=== PATIENT | female | born 1945 | race Caucasian/White ===

== ENCOUNTER 2020-07-11 15:30 | Inpatient (IN) | payer MEDICARE ==
[~2020-07-11] VITALS: Ht 165.1 cm; Wt 70.8 kg
[2020-07-11] MEDS ORDERED: RISP2TAB23 PO (16:03)
[2020-07-11] MEDS ORDERED: METO-357 PO (16:03)
[2020-07-11] MEDS ORDERED: SODI650T PO (16:03)
[2020-07-11] MEDS ORDERED: ATOR80TA PO (16:03)
[2020-07-11] MEDS ORDERED: ASPI-605 PO (16:03)
[2020-07-11] MEDS ORDERED: IRBE300T19 PO (16:03)
--- NOTE | 2020-07-11 16:20 | NUR ---
SEEN AND EXAMINED BY .
[2020-07-11 16:55] LABS: BASOPHILS # (AUTO) 0.1 /CMM (0.0-0.2); BASOPHILS % (AUTO) 0.8 % (0.0-2.0); EOSINOPHILS % (AUTO) 1.2 % (0.0-6.0); HEMATOCRIT 39 % (39-51); HEMOGLOBIN 12.3 g/dL (13.5-17.5); LYMPHOCYTES # (AUTO) 1.6 /CMM (0.8-4.8); LYMPHOCYTES % (AUTO) 22.2 % (20.0-44.0); MEAN CORPUSCULAR HGB CONC 32 g/dl (31.0-36.0); MEAN CORPUSCULAR VOLUME 94 fL (80-96); MONOCYTES # (AUTO) 0.7 /CMM (0.1-1.30); MONOCYTES % (AUTO) 10.3 % (2.0-12.0); NEUTROPHILS # (AUTO) 4.6 /CMM (1.8-8.9); NEUTROPHILS % (AUTO) 65.5 % (43.0-81.0); PLATELET COUNT (AUTO) 267 /CMM (150-450); RED BLOOD CELL COUNT(AUTO) 4.12 MIL/uL (4.5-6.0); WHITE BLOOD COUNT (AUTO) 7.1 K/uL (4.3-11.0)
[2020-07-11 17:04] LABS: CALCIUM, SERUM 8.9 mg/dL (8.5-10.1); CARBON DIOXIDE 30 mmol/L (21-32); CHLORIDE 110 mmol/L (98-107); CREATININE 1.8 mg/dL (0.6-1.3); GLUCOSE 110 mg/dL (74-106); POTASSIUM 4.5 mmol/L (3.5-5.1); SODIUM SERUM 146 mmol/L (136-145); UREA NITROGEN, BLOOD 40 mg/dL (7-18)
[2020-07-11 17:09] LABS: ALANINE AMINOTRANSFERASE 20 U/L (12-78); ALBUMIN 3.2 g/dL (3.4-5.0); ALKALINE PHOSPHATASE 120 U/L (46-116); ASPARTATE AMINOTRANSFERASE 18 U/L (15-37); BILIRUBIN,DIRECT 0.2 mg/dL (0.0-0.2); BILIRUBIN,TOTAL 1.1 mg/dL (0.2-1.0); TOTAL PROTEIN, SERUM 7.3 g/dL (6.4-8.2)
[2020-07-11 17:10] LABS: ACETAMINOPHEN < 2 ug/ml (10-30); ALCOHOL, BLOOD < 3 mg/dL (0-0); SALICYLATE < 2.8 mg/dL (2.8-20.0)
[2020-07-11 18:08] LABS: APPEARANCE,URINE Slightly Cloudy (CLEAR); BILIRUBIN,URINE Negative (NEGATIVE); BLOOD, URINE Trace-intact Ery/uL (NEGATIVE); COLOR,URINE Yellow (YELLOW); KETONES,URINE Negative (NEGATIVE); LEUKOCYTE ESTERASE ,URINE Small (NEGATIVE); NITRITE, URINE Positive (NEGATIVE); PH,URINE 5.5 (5.0-8.0); PROTEIN,URINE Negative (NEGATIVE); UGLUCOSE Negative (NEGATIVE); UROBILINOGEN,URINE 0.2 EU/dL (0.2)
[2020-07-11 18:16] LABS: BACTERIA,URINE Many /HPF (None Seen)
[2020-07-11 18:17] LABS: SQUAMOUS EPITHELIAL CELL,UR Few /HPF (None Seen)
[2020-07-11] MEDS ORDERED: CEFTRIAXONE 1 G in IV D5W 50 ML IV ONE (18:30)
[2020-07-11] MEDS ORDERED: IV NS 0.9% 1,000 ML IV ONE (18:30)
[2020-07-11] MEDS ORDERED: CEFTRIAXONE 1GM BAG (ER ONLY) 50 ML IV ONE (18:57)
--- NOTE | 2020-07-11 19:01 | NUR ---
CALLED AERONAUTICAL INSPECTOR DAVID DIEGO 1 HOUR
--- NOTE | 2020-07-11 19:10 | NUR ---
BIBDAUGHTER FROM HOME. TO ER BED 13. AAOX2 NOT IN RESP DISTRESS. BROUGHT IN FOR PROGRESSIVELY WORSENING CONFUSION AND WANDERING AT NIGHT. PT WAS ALSO REPORTED THAT HE COULD BE AGGRESIVE. PT DENIES ANY THOUGHT S OF HURTING HERSELF NOR OTHERS. DURING ASSESSMENT, PT IS CALM, COOPERATIVE AND COMPLIANT. PT IS IN GOWN WITH DAUGHTER AT BEDSIDE. MD WAS AT THE BEDSIDE FOR EVAL. ORDERS RECEIVED NOTED AND CARRIED OUT.
--- NOTE | 2020-07-11 19:15 | NUR ---
PT PROVIDED WITH FOOD
--- NOTE | 2020-07-11 21:28 | NUR ---
[facility]-2
[2020-07-11 21:53] VITALS: BP 129/65
--- NOTE | 2020-07-11 22:03 | NUR ---
Transported to [facility] for continuity of care. Patient tolerated transport well. All needs met, all orders carried out.
--- NOTE | 2020-07-11 22:05 | NUR ---
GPS RN-NOTE:ADMISSION ADMITTED A 75-YR OLD, FEMALE, PT CAME FROM HOME. ADMITTED ON 5150 FOR GD. PER HOLD, PT WAS INCREASINGLY CONFUSED, WANDERS AWAY FROM THE HOME. PT WAS FOUND ON THE STREET, LOOKING FOR HER , TALKING TO A WATER BOTTLE, TALKING TO SELF, HEARING VOICES, VERBALLY ABUSIVE. UPON FACE TO FACE ASSESSMENT, PATIENT PRESENTS A/OX 2, ANXIOUS, IRRITABLE, ANGRY, CONFUSED AND DISORIENTED, AMBULATORY UNSTEADY WITH ASSIST. PT EVAL ORDERED. PT WAS ADVISED OF HER HOLD. PT'S RIGHTS HANDBOOK AND A GUIDE TO PRESCRIPTION MEDICATIONS GIVEN. IN NO APPARENT DISTRESS NOTED. BELONGINGS WERE INVENTORIED AND CHECKED FOR CONTRABAND. PT. IS UNDER THE PSYCHIATRIC CARE OF DR. LENCHO HENDRICKS OBTAINED, AND UNDER THE MEDICAL CARE OF MARY BURGER. SKIN BODY ASSESSMENT DONE. PT DENIES PAIN/DISCOMFORT AT THIS TIME. BED LOCKED AND PLACED IN LOWEST POSITION TO MAINTAIN SAFETY. FALL PRECAUTIONS IMPLEMENTED. WILL CONTINUE TO MONITOR Q15 MIN ROUNDS FOR SAFETY AND BEHAVIOR.
[2020-07-11] MEDS ORDERED: BLOOD SUGAR DIAGNOSTIC 1 EACH STRIP IN ONE (22:30)
[2020-07-11] MEDS ORDERED: ACETAMINOPHEN 325 MG TABLET PO PRN (22:30)
[2020-07-11] MEDS ORDERED: MAGNESIUM HYDROXIDE 30 ML UDC PO PRN (22:30)
[2020-07-11] MEDS ORDERED: MAG HYDROX/AL HYDROX/SIMETH 30 ML UDC PO PRN (22:30)
[2020-07-11] MEDS: ATORVASTATIN 40 MG TABLET PO SCH (23:28)
[2020-07-12] MEDS ORDERED: Z GUARD REMEDY 4 OZ OINT TP PRN (02:00)
[2020-07-12] MEDS: LORAZEPAM 0.5 MG TABLET PO PRN (03:14)
--- NOTE | 2020-07-12 03:14 | NUR ---
GPS-RN NOTE: ANXIETY PATIENT IS ANXIOUS AND RESTLESS. ADMINISTERED ATIVAN 0.5MG PO ORDERED. WILL CONTINUE TO MONITOR. FOR SAFETY.
[2020-07-12] MEDS: ASPIRIN EC 81 MG TABLET.DR PO SCH (06:19)
[2020-07-12 08:00] VITALS: BP 146/88
[2020-07-12 08:20] LABS: CREATININE 1.1 mg/dL (0.6-1.3)
[2020-07-12] MEDS: METOPROLOL SUCCINATE 50 MG TAB.SR.24H PO SCH (08:35)
[2020-07-12] MEDS: CEPHALEXIN MONOHYDRATE 500 MG CAPSULE PO SCH ×2 (08:35→16:39)
[2020-07-12] MEDS: SODIUM BICARBONATE 650 MG TABLET PO SCH ×3 (09:00→16:39)
--- NOTE | 2020-07-12 11:38 | NUR ---
WOUND CARE CONSULT: PT PRESENTS WITH BREASTFOLD RASH, PRESENT ON ADMISSION. RECOMMENDATIONS MADE FOR SKIN CARE AND PROTECTION. DISCUSSED WITH NURSING STAFF. WILL SEE PRN. MOREIRA IN AGREEMENT WITH PLAN OF CARE. Addendum: 07/12/20 at 1139 by AFUA VIEYRA WNDNU Amended: Links added.
--- NOTE | 2020-07-12 12:39 | NUR ---
SNF Contact: SW received a call from Karina ([phone]), craft coordinator from [facility], who stated that the pt was admitted to their facility.
--- NOTE | 2020-07-12 12:40 | NUR ---
Family Contact: Pts daughter, Sofy ([phone]), called the SW and stated that the pt was accepted to [facility] and the SW stated that she was notified of the placement. SW stated that she will keep her updated throughout the discharge planning process.
[2020-07-12 16:00] VITALS: BP 150/79
[2020-07-12] MEDS: risperiDONE 1 MG TABLET PO SCH (16:38)
[2020-07-12] MEDS: CLOTRIMAZOLE 1% 15 GM TUBE TP SCH (16:39)
[2020-07-12 19:58] VITALS: BP 148/90
[2020-07-12] MEDS: ATORVASTATIN 40 MG TABLET PO SCH (21:44)
[2020-07-13] MEDS: ASPIRIN EC 81 MG TABLET.DR PO SCH (06:09)
[2020-07-13 08:00] VITALS: BP 169/83
[2020-07-13] MEDS: CEPHALEXIN MONOHYDRATE 500 MG CAPSULE PO SCH ×2 (09:08→16:07)
[2020-07-13] MEDS: SODIUM BICARBONATE 650 MG TABLET PO SCH ×3 (09:08→16:07)
[2020-07-13] MEDS: risperiDONE 1 MG TABLET PO SCH ×2 (09:08→16:07)
[2020-07-13] MEDS: METOPROLOL SUCCINATE 50 MG TAB.SR.24H PO SCH (09:08)
[2020-07-13] MEDS: CLOTRIMAZOLE 1% 15 GM TUBE TP SCH ×2 (09:09→16:08)
--- NOTE | 2020-07-13 12:22 | NUR ---
Initial Discharge Plan: Pt currently resides in an apartment with her DPOA/daughter, Sofy ([phone]), located at [address] [place] [address]. Per pt, she would like to be discharged back to her home. Per BRIISofy ([phone]), the pt was accepted to [facility]. MAURI confirmed this with Karina ([phone]) the stroke program coordinator. MAURI will work with the pt and the MD regarding appropriate discharge planning. MAURI will form a safe and proper discharge plan.
--- NOTE | 2020-07-13 12:22 | NUR ---
DPOA/Family Contact: SW called the pts daughter, Sofy ([phone]), and asked the pt to fax over the pts DPOA paperwork.
[2020-07-13 16:00] VITALS: BP 135/62
[2020-07-13] MEDS: METFORMIN 500 MG TABLET PO SCH (16:07)
[2020-07-13] MEDS: ATORVASTATIN 40 MG TABLET PO SCH (21:53)
[2020-07-13 22:00] VITALS: BP 128/70
[2020-07-14] MEDS: ASPIRIN EC 81 MG TABLET.DR PO SCH (06:06)
--- NOTE | 2020-07-14 06:57 | NUR ---
RN NOTES: PT. RESTING IN HER ROOM , NO ACUTE CHANGES NOTED, ALL NEEDS ANTICIPATED, WILL CONTINUITY WITH CARE.
[2020-07-14 08:00] VITALS: BP 127/71
[2020-07-14] MEDS: METFORMIN 500 MG TABLET PO SCH ×2 (08:34→16:19)
[2020-07-14] MEDS: CEPHALEXIN MONOHYDRATE 500 MG CAPSULE PO SCH ×2 (08:34→16:19)
[2020-07-14] MEDS: METOPROLOL SUCCINATE 50 MG TAB.SR.24H PO SCH (08:34)
[2020-07-14] MEDS: SODIUM BICARBONATE 650 MG TABLET PO SCH ×3 (08:34→16:19)
[2020-07-14] MEDS: risperiDONE 1 MG TABLET PO SCH ×2 (08:34→16:19)
[2020-07-14] MEDS: CLOTRIMAZOLE 1% 15 GM TUBE TP SCH ×2 (08:35→16:20)
[2020-07-14 16:00] VITALS: BP 137/71
[2020-07-14 19:28] VITALS: BP 120/75
[2020-07-14] MEDS: ATORVASTATIN 40 MG TABLET PO SCH (22:28)
[2020-07-14] MEDS: TEMAZEPAM 7.5 MG CAPSULE PO PRN (22:29)
--- NOTE | 2020-07-14 23:45 | NUR ---
GPS RN NOTE: PT REQUESTED FOR SLEEP MEDICATION DUE TO INSOMNIA. RESTORIL 7.5MG 1 TAB GIVEN PO PRN AT 2329. PT IS CURRENTLY SLEEPING. RESPIRATION EVEN AND UNLABORED WITH EQUAL RISE AND FALL OF THE CHEST. WILL CONTINUE TO MONITOR.
[2020-07-15] MEDS: ASPIRIN EC 81 MG TABLET.DR PO SCH (05:56)
--- NOTE | 2020-07-15 06:05 | NUR ---
GPS RN CLOSING NOTE: PT AWAKE AND ALERT. ASPIRIN 81MG 1 TAB GIVEN PO ORDERED AT 0600. PT LAYING COMFORTABLY ON BED. RESPIRATION EVEN AND UNLABORED WITH EQUAL RISE AND FALL OF THE CHEST. NO S/S OF ANY DISTRESS. ALL PT NEEDS, CARE DONE. PT HAS NO NEEDS AT THIS TIME. WILL CONTINUE TO MONITOR Q 15MINS AND Q 1 HR FOR SAFETY, MOOD AND BEHAVIOR AND ENDORSE TO AM SHIFT.
[2020-07-15 08:00] VITALS: BP 107/61
[2020-07-15] MEDS: CEPHALEXIN MONOHYDRATE 500 MG CAPSULE PO SCH ×2 (08:13→16:49)
[2020-07-15] MEDS: risperiDONE 1 MG TABLET PO SCH ×3 (08:13→22:16)
[2020-07-15] MEDS: METOPROLOL SUCCINATE 50 MG TAB.SR.24H PO SCH (08:13)
[2020-07-15] MEDS: METFORMIN 500 MG TABLET PO SCH ×2 (08:13→16:49)
[2020-07-15] MEDS: SODIUM BICARBONATE 650 MG TABLET PO SCH ×3 (08:15→16:49)
[2020-07-15] MEDS: CLOTRIMAZOLE 1% 15 GM TUBE TP SCH ×2 (08:21→16:50)
--- NOTE | 2020-07-15 09:00 | NUR ---
RN NOTE- PT IRRITABLE ON APPROACH, RESPONDS W MONOSYLLABIC ANSWERS, FLAT AFFECT POOR EYE CONTACT DISORGANIZED THOUGHT PROCESSES. PO INTAKE GOOD MED COMPLIANT PASSIVE WITHDRAWN
[2020-07-15 16:00] VITALS: BP 125/71
[2020-07-15 20:16] VITALS: BP 115/63
[2020-07-15] MEDS: ATORVASTATIN 40 MG TABLET PO SCH (22:16)
[2020-07-16] MEDS: ASPIRIN EC 81 MG TABLET.DR PO SCH ×2 (06:21→09:41)
[2020-07-16 06:49] LABS: BASOPHILS % (AUTO) 0.8 % (0.0-2.0); HEMATOCRIT 38 % (33-45); HEMOGLOBIN 12.4 g/dL (11.5-14.8); LYMPHOCYTES # (AUTO) 1.4 /CMM (0.8-4.8); LYMPHOCYTES % (AUTO) 25.5 % (20.0-44.0); MEAN CORPUSCULAR HGB CONC 32 g/dl (31.0-36.0); MEAN CORPUSCULAR VOLUME 92 fL (82-100); MONOCYTES # (AUTO) 0.5 /CMM (0.1-1.30); MONOCYTES % (AUTO) 9.7 % (2.0-12.0); NEUTROPHILS # (AUTO) 3.6 /CMM (1.8-8.9); PLATELET COUNT (AUTO) 258 /CMM (150-450); RED BLOOD CELL COUNT(AUTO) 4.18 MIL/uL (4.0-5.2); WHITE BLOOD COUNT (AUTO) 5.6 K/uL (4.3-11.0)
--- NOTE | 2020-07-16 06:49 | NUR ---
RN NOTES: PT. RESTING IN HER ROOM , NO ACUTE CHANGES NOTED, ALL NEEDS ANTICIPATED, WILL CONTINUITY WITH CARE.
[2020-07-16 07:10] LABS: ALANINE AMINOTRANSFERASE 21 U/L (12-78); ALBUMIN 3.1 g/dL (3.4-5.0); ALKALINE PHOSPHATASE 105 U/L (46-116); ASPARTATE AMINOTRANSFERASE 23 U/L (15-37); BILIRUBIN,TOTAL 1.2 mg/dL (0.2-1.0); CALCIUM, SERUM 9.4 mg/dL (8.5-10.1); CARBON DIOXIDE 29 mmol/L (21-32); CHLORIDE 103 mmol/L (98-107); CREATININE 1.4 mg/dL (0.6-1.3); GLUCOSE 120 mg/dL (74-106); MAGNESIUM 1.8 mg/dL (1.8-2.4); PHOSPHORUS 3.6 mg/dL (2.5-4.9); POTASSIUM 4.3 mmol/L (3.5-5.1); SODIUM SERUM 140 mmol/L (136-145); TOTAL PROTEIN, SERUM 7.6 g/dL (6.4-8.2); UREA NITROGEN, BLOOD 28 mg/dL (7-18)
[2020-07-16 08:00] VITALS: BP 110/72
[2020-07-16] MEDS: METOPROLOL SUCCINATE 50 MG TAB.SR.24H PO SCH (09:00)
[2020-07-16] MEDS: METFORMIN 500 MG TABLET PO SCH ×2 (09:40→17:49)
[2020-07-16] MEDS: risperiDONE 1 MG TABLET PO SCH ×2 (09:40→21:31)
[2020-07-16] MEDS: CEPHALEXIN MONOHYDRATE 500 MG CAPSULE PO SCH ×2 (09:41→17:48)
[2020-07-16] MEDS: CLOTRIMAZOLE 1% 15 GM TUBE TP SCH ×2 (09:44→17:49)
[2020-07-16] MEDS: SODIUM BICARBONATE 650 MG TABLET PO SCH ×3 (09:44→17:49)
--- NOTE | 2020-07-16 10:00 | NUR ---
fundraising consultant light freq.and urine obtained for multiple tests per dr. russell's order.
[2020-07-16 12:24] LABS: CREATININE, URINE 83.9 MG/DL (30.0-125.0); URINE TOTAL PROTEIN 7.8 mg/dL (0-11.9)
[2020-07-16 13:13] LABS: APPEARANCE,URINE CLEAR (CLEAR); BILIRUBIN,URINE NEGATIVE (NEGATIVE); BLOOD, URINE NEGATIVE Ery/uL (NEGATIVE); COLOR,URINE YELLOW (YELLOW); KETONES,URINE NEGATIVE (NEGATIVE); LEUKOCYTE ESTERASE ,URINE NEGATIVE (NEGATIVE); NITRITE, URINE NEGATIVE (NEGATIVE); PROTEIN,URINE NEGATIVE (NEGATIVE); UGLUCOSE NEGATIVE (NEGATIVE); UROBILINOGEN,URINE 0.2 EU/dL (0.2)
[2020-07-16 15:06] LABS: EOSINOPHIL,URINE None Seen
[2020-07-16 16:00] VITALS: BP 118/65
--- NOTE | 2020-07-16 18:57 | NUR ---
BACK AND FORTH BETWEEN RM. AND DINING RM.YELLING OUT FROM TIME TO TIME.VERY CONFUSED.
[2020-07-16 20:00] VITALS: BP 105/51
[2020-07-16 21:28] VITALS: BP 113/60
[2020-07-16] MEDS: ATORVASTATIN 40 MG TABLET PO SCH (21:30)
[2020-07-17 08:00] VITALS: BP 139/84
[2020-07-17] MEDS: risperiDONE 1 MG TABLET PO SCH ×2 (09:12→22:55)
[2020-07-17] MEDS: METOPROLOL SUCCINATE 50 MG TAB.SR.24H PO SCH (09:12)
[2020-07-17] MEDS: METFORMIN 500 MG TABLET PO SCH ×2 (09:12→16:36)
[2020-07-17] MEDS: SODIUM BICARBONATE 650 MG TABLET PO SCH ×3 (09:27→16:37)
[2020-07-17] MEDS: CLOTRIMAZOLE 1% 15 GM TUBE TP SCH ×2 (09:27→16:38)
--- NOTE | 2020-07-17 10:11 | NUR ---
RN-CO: ATIVAN GIVEN FOR SEVERE ANXIETY.
[2020-07-17 16:00] VITALS: BP 128/82
[2020-07-17] MEDS: LORAZEPAM 0.5 MG TABLET PO PRN (16:59)
--- NOTE | 2020-07-17 17:11 | NUR ---
RN-CO: ATIVAN 0.5 MG PO GIVEN FOR AGITATION.
[2020-07-17 20:22] VITALS: BP 102/58
[2020-07-17] MEDS: TEMAZEPAM 7.5 MG CAPSULE PO PRN (22:50)
[2020-07-17] MEDS: ATORVASTATIN 40 MG TABLET PO SCH (22:55)
[2020-07-18] MEDS: ASPIRIN EC 81 MG TABLET.DR PO SCH (06:52)
[2020-07-18 07:57] VITALS: BP 142/75
[2020-07-18] MEDS: METFORMIN 500 MG TABLET PO SCH ×2 (08:37→17:25)
[2020-07-18] MEDS: risperiDONE 1 MG TABLET PO SCH ×2 (08:37→22:18)
[2020-07-18] MEDS: METOPROLOL SUCCINATE 50 MG TAB.SR.24H PO SCH (08:38)
[2020-07-18] MEDS: CLOTRIMAZOLE 1% 15 GM TUBE TP SCH ×2 (08:40→17:33)
[2020-07-18] MEDS: SODIUM BICARBONATE 650 MG TABLET PO SCH ×3 (08:40→17:33)
[2020-07-18] MEDS: DIVALPROEX SODIUM 125 MG CAP.SPRINK PO SCH ×3 (10:48→17:25)
[2020-07-18 16:00] VITALS: BP 110/61
[2020-07-18 20:18] VITALS: BP 99/57
[2020-07-18] MEDS: ATORVASTATIN 40 MG TABLET PO SCH (22:17)
[2020-07-18] MEDS: TEMAZEPAM 7.5 MG CAPSULE PO PRN (22:50)
[2020-07-19] MEDS: ASPIRIN EC 81 MG TABLET.DR PO SCH (06:08)
[2020-07-19 06:29] LABS: BASOPHILS # (AUTO) 0.1 /CMM (0.0-0.2); EOSINOPHILS % (AUTO) 1.6 % (0.0-6.0); HEMATOCRIT 38 % (33-45); HEMOGLOBIN 11.9 g/dL (11.5-14.8); LYMPHOCYTES # (AUTO) 1.8 /CMM (0.8-4.8); LYMPHOCYTES % (AUTO) 25.8 % (20.0-44.0); MEAN CORPUSCULAR HGB CONC 32 g/dl (31.0-36.0); MEAN CORPUSCULAR VOLUME 94 fL (82-100); MONOCYTES # (AUTO) 0.7 /CMM (0.1-1.30); MONOCYTES % (AUTO) 9.8 % (2.0-12.0); NEUTROPHILS # (AUTO) 4.2 /CMM (1.8-8.9); NEUTROPHILS % (AUTO) 61.8 % (43.0-81.0); PLATELET COUNT (AUTO) 244 /CMM (150-450); RED BLOOD CELL COUNT(AUTO) 4.03 MIL/uL (4.0-5.2); WHITE BLOOD COUNT (AUTO) 6.8 K/uL (4.3-11.0)
[2020-07-19 07:16] LABS: ALANINE AMINOTRANSFERASE 21 U/L (12-78); ALBUMIN 2.9 g/dL (3.4-5.0); ALKALINE PHOSPHATASE 95 U/L (46-116); ASPARTATE AMINOTRANSFERASE 29 U/L (15-37); CALCIUM, SERUM 9.2 mg/dL (8.5-10.1); CARBON DIOXIDE 29 mmol/L (21-32); CHLORIDE 104 mmol/L (98-107); CREATININE 1.6 mg/dL (0.6-1.3); GLUCOSE 96 mg/dL (74-106); MAGNESIUM 2.1 mg/dL (1.8-2.4); PHOSPHORUS 4.7 mg/dL (2.5-4.9); POTASSIUM 4.7 mmol/L (3.5-5.1); SODIUM SERUM 140 mmol/L (136-145); UREA NITROGEN, BLOOD 33 mg/dL (7-18)
[2020-07-19 08:00] VITALS: BP 123/59
[2020-07-19] MEDS: DIVALPROEX SODIUM 125 MG CAP.SPRINK PO SCH (08:18)
[2020-07-19] MEDS: risperiDONE 1 MG TABLET PO SCH (08:18)
[2020-07-19] MEDS: METFORMIN 500 MG TABLET PO SCH (08:18)
[2020-07-19] MEDS: METOPROLOL SUCCINATE 50 MG TAB.SR.24H PO SCH (08:19)
[2020-07-19] MEDS: SODIUM BICARBONATE 650 MG TABLET PO SCH ×2 (08:28→13:00)
[2020-07-19] MEDS: CLOTRIMAZOLE 1% 15 GM TUBE TP SCH (08:28)
[2020-07-19 12:03] LABS: ABG BASE EXCESS 1.6 mmol/L; ABG OXYGEN SATURATION 96.7 % (92.0-98.5); ABG PCO2 56.3 mmHg (35.0-45.0); ABG PH 7.326 (7.350-7.450); ABG PO2 98.3 mmHg (75.0-100.0); AaDO2 34.9 mmHg; MetHb 0.3 % (0.0-1.5); O2Hb 96.4 % (94.0-97.0); SITE, ABG Right Radial; VENT MODE, BG SIMPLE MASK
--- NOTE | 2020-07-19 13:15 | NUR ---
RN-CO: DR MUSA MADE AWARE OF THE DISCHARGE TO ICU 264 DUE TO RESPIRATORY DISTRESS PER DR STANLEY. DR MUSA ORDERED TO CONTINUE PSYCH MEDS AND DISCONTINUE HOLD, NOTED.
--- NOTE | 2020-07-19 13:26 | NUR ---
RN NOTE: REPORT CALLED TO OMAYRA ARAYA IN ICU
[2020-07-19 13:30] VITALS: BP 114/68
--- NOTE | 2020-07-19 13:30 | NUR ---
CASHIER RECEPTIONIST NOTE/TRANSFER TO ICU - RAPID RESPONSE CALLED AFTER PT C/O DIFFICULTY BREATHING AND NOTED TO HAVE AN SPO2 83-84% ON RA. PT PLACED ON 2L VIA MASK AND SP2 INCREASED 85-86% PT LETHARGIC AND DIFFICULT TO AROUSE USING STERNAL RUB. RAPID RESPONSE CALLED. VS: 114/68, 22, 66, 98.6, ACCUCHECK 104. RAPID RESPONSE TEAM ASSESSED PT. PT DETERMINED TO BE MEDICALLY STABLE AND WITH SPO2 INCREASING TO 94% ON 4 LITERS VIA MASK. ATTEMPTED TO REPLACE MASK WITH NC AND TITRATE O2 BETWEEN 2-4 LITERS. INOCENCIA NOTIFIED AND ORDER FOR CHEST XRAY AND ABG. WHEN ATTEMPTING TO TITRATE O2 FROM 4 LITERS PT SPO2 DROPPED INTO THE 80'S. ABG RESULTS REVIEWED BY INOCENCIA DNP AND PCO2 ELEVATED. ORDER TO TRANSFER TO ICU. PSYCHIATRIST D/C'D HOLD AND ALL PSYCHIATRIC MEDICATIONS. REPORT CALLED TO ICU MAGDALENA RN. PT TRANSFERRED TO ICU VIA GURNEY WITH O2 AT 4 LITERS VIA NC AND ON LUBRICATOR GRANULATOR
--- NOTE | 2020-07-19 13:34 | NUR ---
RN-CO: DAUGHTER ROSHAN TEE [phone] IS AWARE OF HER DISCHARGE TO ICU ROOM 264.
--- NOTE | 2020-07-19 13:37 | NUR ---
DPOA/Family Contact: MAURI called the pts daughter, Sofy ([phone]), and informed her that the pt is going to be discharged to ICU for respiratory distress. MAURI stated that she will inform the director of casework department of the discharge plan to [facility].
--- NOTE | 2020-07-19 13:42 | NUR ---
Discharge Note: Pt was discharged to [facility] ICU due to respiratory distress.
[2020-07-19] MEDS ORDERED: DIVALPROEX SODIUM 125 MG CAP.SPRINK PO SCH (17:00)
== END 2020-07-19 13:17 | disposition short-term general hospital (02) | DRG 885 ==
LOC: EDSEX 15:38 → ER 15:38 → GPS 21:30
PROVIDERS: ADMIT Psychiatry & Neurology Psychiatry; ATTEND Nurse Practitioner Acute Care
DX: F31.64 Bipolar disorder, current episode mixed, severe, with psychotic features (principal); N17.0 Acute kidney failure with tubular necrosis; N18.9 Chronic kidney disease, unspecified; E44.1 Mild protein-calorie malnutrition; N39.0 Urinary tract infection, site not specified; E87.0 Hyperosmolality and hypernatremia; F29 Unspecified psychosis not due to a substance or known physiological condition; F03.90 Unspecified dementia, unspecified severity, without behavioral disturbance, psychotic disturbance, mood disturbance, and anxiety; E78.5 Hyperlipidemia, unspecified; I25.10 Atherosclerotic heart disease of native coronary artery without angina pectoris; Z95.1 Presence of aortocoronary bypass graft; I12.9 Hypertensive chronic kidney disease with stage 1 through stage 4 chronic kidney disease, or unspecified chronic kidney disease; E11.22 Type 2 diabetes mellitus with diabetic chronic kidney disease; Z79.82 Long term (current) use of aspirin; Z79.899 Other long term (current) drug therapy; Z73.6 Limitation of activities due to disability; B96.20 Unspecified Escherichia coli [E. coli] as the cause of diseases classified elsewhere
CPT/HCPCS: 36415; 36600; 71045-TC; 80048-TC; 80053-TC; 80061-TC; 80076-TC; 80305; 81000-TC; 82565-TC; 82570-TC; 82962-TC; 83735-TC; 84100-TC; 84155-TC; 84300-TC; 84443-TC; 85025-TC; 87081-TC; 87086-TC; 87186-TC; 97116-TC; G0480; J0696; J7030; J7060

== ENCOUNTER 2020-07-19 14:17 | Inpatient (IN) | payer MEDICARE ==
[2020-07-19] VITALS (10 sets, daily range): BP systolic 80–123; BP diastolic 35–78
[~2020-07-19] VITALS: Ht 165.1 cm; Wt 73.9 kg
--- NOTE | 2020-07-19 14:00 | NUR ---
ICU/RN: RECEIVED PT FROM [facility]. PT ADMITTED FROM [facility] FOR AMS. PT NOTED TO BE INCREASINGLY LETHARGIC, CONFUSED R/T PSYCHE MEDICATIONS. PT TRANSFERRED VIA WHEELCHAIR, TRANSFERRED TO BED. VSS, PLACED ON 4LITERS NASAL CANULA, NO ACUTE DISTRESS NOTED, MAINTAINING 02 SAT >93%. SINUS ON TELE. PSYCHE HOLD D/C'D PIOR IN [facility]. PT ALERT, FOLLOWS COMMANDS, YET CONFUSED AND INAPPROPRIATE. WILL CONTINUE TO MONITOR AND ASSESS. BED ALARM ON, CALL LIGHT WITHIN REACH. WILL CONTINUE TO MONITOR AND CARE.
[~2020-07-19 14:17] MED LIST: ASPI-605 PO; ATOR80TA PO; IRBE300T19 PO; METO-357 PO; SODI650T PO
[2020-07-19] MEDS ORDERED: IV NS 0.9% 1,000 ML IV PRN (15:00)
[2020-07-19] MEDS ORDERED: Z GUARD REMEDY 2 OZ OINT TP PRN (15:00)
[2020-07-19] MEDS ORDERED: ZOLPIDEM TARTRATE 5 MG TABLET PO PRN (15:00)
[2020-07-19] MEDS ORDERED: ACETAMINOPHEN 325 MG TABLET PO PRN (15:00)
[2020-07-19] MEDS ORDERED: ONDANSETRON HCL/PF 4 MG/2 ML VIAL IVP PRN (15:00)
--- NOTE | 2020-07-19 15:00 | NUR ---
ICU/RN: BREAST FOLD REDNESS NOTED UPON ADMISSION. PT REFUSED PHOTOS. CHARTED SKIN ASSESSMENT IN FLOWSHEET.
[2020-07-19 16:02] LABS: ABG BASE EXCESS 0.9 mmol/L; ABG OXYGEN SATURATION 95.7 % (92.0-98.5); ABG PCO2 47.8 mmHg (35.0-45.0); ABG PH 7.367 (7.350-7.450); AaDO2 115.2 mmHg; COHb 0.2 % (0.5-1.5); MetHb 0.1 % (0.0-1.5); O2Hb 95.4 % (94.0-97.0); SITE, ABG Right Brachial; VENT MODE, BG Nasal Cannula
--- NOTE | 2020-07-19 16:15 | NUR ---
ICU/RN: PT PULLED OUT PIV. REFUSED NEW INSERTION. ONE REMAINING RIGHT AC 20G.
[2020-07-19] MEDS: IPRATROPIUM NEB FS 0.5 MG/2.5 ML AMPUL.NEB NEB SCH ×3 (16:40→23:27)
[2020-07-19] MEDS: ALBUTEROL HALF STRENGTH 1.25 MG/3 ML VIAL.NEB NEB SCH ×3 (16:41→23:27)
[2020-07-19] MEDS ORDERED: IV NS 0.9% 500 ML IV ONE (18:00)
--- NOTE | 2020-07-19 19:30 | NUR ---
RN OPENING NOTES Received client resting in bed. Client is asleep. VS WNL. client is on external tele, NSR, HR 70's. O2 sat 98% on NC, receiving 2L of O2. No indications of pain or distress at this time. Client sleeps comfortably. Comfort measures provided at this time. Safety mechanisms in place. Will continue to monitor.
[2020-07-19] MEDS: HEPARIN SODIUM, PORCINE 5000 UNITS/1 ML VIAL SQ SCH (21:00)
--- NOTE | 2020-07-19 21:11 | NUR ---
client refused her heparin medication. benefits and risks were explained.
[2020-07-20] VITALS (17 sets, daily range): BP systolic 108–133; BP diastolic 52–101
--- NOTE | 2020-07-20 03:10 | NUR ---
RN NOTES Client is awake and request bedpan to produce urine. The client refuses to have the bed linen change or to to get skin care at this time. Client would like to continue sleeping. Will offer it at a later time.
[2020-07-20] MEDS: IPRATROPIUM NEB FS 0.5 MG/2.5 ML AMPUL.NEB NEB SCH ×6 (04:14→22:29)
[2020-07-20] MEDS: ALBUTEROL HALF STRENGTH 1.25 MG/3 ML VIAL.NEB NEB SCH ×6 (04:14→22:30)
[2020-07-20 04:49] LABS: BASOPHILS # (AUTO) 0.1 /CMM (0.0-0.2); BASOPHILS % (AUTO) 1.2 % (0.0-2.0); EOSINOPHILS % (AUTO) 1.4 % (0.0-6.0); HEMATOCRIT 37 % (33-45); LYMPHOCYTES # (AUTO) 1.3 /CMM (0.8-4.8); LYMPHOCYTES % (AUTO) 21.8 % (20.0-44.0); MEAN CORPUSCULAR HGB CONC 32 g/dl (31.0-36.0); MEAN CORPUSCULAR VOLUME 93 fL (82-100); MONOCYTES # (AUTO) 0.6 /CMM (0.1-1.30); MONOCYTES % (AUTO) 9.5 % (2.0-12.0); NEUTROPHILS # (AUTO) 3.8 /CMM (1.8-8.9); NEUTROPHILS % (AUTO) 66.1 % (43.0-81.0); PLATELET COUNT (AUTO) 239 /CMM (150-450); RED BLOOD CELL COUNT(AUTO) 4.03 MIL/uL (4.0-5.2); WHITE BLOOD COUNT (AUTO) 5.8 K/uL (4.3-11.0)
[2020-07-20 05:08] LABS: CALCIUM, SERUM 8.9 mg/dL (8.5-10.1); CARBON DIOXIDE 30 mmol/L (21-32); CHLORIDE 106 mmol/L (98-107); CREATININE 1.4 mg/dL (0.6-1.3); GLUCOSE 98 mg/dL (74-106); PHOSPHORUS 4.1 mg/dL (2.5-4.9); POTASSIUM 4.4 mmol/L (3.5-5.1); SODIUM SERUM 143 mmol/L (136-145); UREA NITROGEN, BLOOD 33 mg/dL (7-18)
[2020-07-20 05:21] LABS: CHOLESTEROL 110 mg/dL (<200); HDL CHOLESTEROL 44 mg/dL (40-60); LDL 52 mg/dL (0-99); TRIGLYCERIDES 84 mg/dL (30-150)
--- NOTE | 2020-07-20 06:49 | NUR ---
RN CLOSING NOTES No change in condition during the shift. No s/s of distress. No s/s of pain, client denies pain. VS WNL. Client remains positive and cooperative, no suicidal ideation expressed during the shift. Behavior congruent with reality. Comfort measures provided. Safety mechanisms in place. Will endorse the incoming nurse.
--- NOTE | 2020-07-20 07:30 | NUR ---
WOUND CARE CONSULT: LIMITED ASSESSMENT DUE TO PT REFUSAL TO HAVE BREASTFOLD AREAS CHECKED. PT PREVIOUSLY REFUSED PHOTOS. PT WAS SEEN BY WOUND CARE NURSE (TELEPRINTER INSTALLER) IN [facility] AND NOTED TO HAVE BREASTFOLD RASH. PT IS INCONTINENT. RECOMMENDATIONS MADE FOR SKIN CARE AND PROTECTION. DISCUSSED WITH NURSING STAFF. WILL SEE PRJamee OMREIRA IN AGREEMENT WITH PLAN OF CARE.
--- NOTE | 2020-07-20 07:45 | NUR ---
ICU/RN: INITIAL NOTES,AM RECEIVED PT ALERT, AWAKE, CONFUSED. ON NASAL CANULA, 2LITERS TOLERATING WELL, NO ACUTE DISTRESS NOTED. SINUS ON TELE. PIV PATENT AND INTACT, NO S;S OF INFECTION OR INFILTRATION NOTED. POSSIBLE DOWNGRADE AT THIS TIME. VSS, NO DISTRESS NOTED. PT ON 2G NA DIET, MINIMAL ASSISTANCE NEEDED. ALL NEEDS WILL BE ATTENDED TO, BED IN LOW POSITION, SIDE RAILS UP, CALL LIGHT WITHIN REACH, WILL CONTINUE CARE. WOUND NURSE AFUA AT BEDSIDE. LIMITED ASSESSMENT. PT REFUSED.
[2020-07-20] MEDS: HEPARIN SODIUM, PORCINE 5000 UNITS/1 ML VIAL SQ SCH ×2 (09:13→21:36)
[2020-07-20] MEDS: CLOTRIMAZOLE 1% 15 GM TUBE TP SCH ×2 (09:15→17:26)
--- NOTE | 2020-07-20 11:45 | NUR ---
ICU/RN: REPORT ENDORSED TO JYOTSNA ARAYA IN 3W. PT TRANSFERRED TO [facility]2. ALL BELONGINGS TRANSFERRED WITH PT. PT TRANSFERRED VIA BED WITH ACLS GUIDELINES. VSS, NO ISSUES NOTED. PIV PATENT AND INTACT, BED ALARM SET. CALL LIGHT WITHIN REACH. WILL CONTINUE CARE
--- NOTE | 2020-07-20 12:00 | NUR ---
TELEVISION CAMERAMANCOMMUNICATIONS CONSULTANT FROM ICU NOTES RECEIVED PT ALERT, AWAKE, CONFUSED. ANXIOUS TO GO BACK TO [place] WHERE SHE LIVES. REALITY ORIENTATION GIVEN. ON NASAL CANULA AT 2LITERS TOLERATING WELL, NO ACUTE DISTRESS NOTED. SINUS ON TELE. PIV PATENT AND INTACT, NO S/S OF INFECTION OR INFILTRATION NOTED. NO DISTRESS NOTED. MINIMAL ASSISTANCE NEEDED. BED IN LOW POSITION, SIDE RAILS UP, CALL LIGHT WITHIN REACH, WILL CONTINUE TO MONITOR.
--- NOTE | 2020-07-20 12:30 | NUR ---
PT KEEPS PULLING OUT HER O2 CANNULA AND DESATURATES TO 89%ON ROOM AIR.PT DENIES SOB.EXPLAINED THE RISKS AND BENEFITS OF HAVING HER O2 CANNULA ON AND PT WILL REMOVE IT AGAIN AFTER A FEW MINS.
[2020-07-20] MEDS: HYDROCODONE/APAP 5/325MG TABLET PO PRN ×2 (13:29→21:37)
--- NOTE | 2020-07-20 14:58 | NUR ---
PT PULLED OUT HER LT AC HEPLOCK INSPITE OF EXPLAINING THE RISKS AND BENEFITS. INSERTED A NEW ONE TO THE RT AC 2X AND PT PULLED IT OUT FOR THE 4TH TIME.NOTIFIED TODD HELLER AND MADE AWARE. PT HAS NO IVF ORDER. Addendum: 07/20/20 at 1508 by JYOTSNA BELL RN NOTIFIED DR PARHAM ABOUT THE ABOVE NOTES.TODD HELLER IS NOT ASSIGNED TO THE PT TODAY.DR PARHAM ORDERED TO DC PT'S IV HEPLOCK AND IV MED
--- NOTE | 2020-07-20 18:20 | NUR ---
PT CONTINUES TO BE CONFUSED,RESTLESS AND AGITATED DROPPING ALL THE PILLOWS AND THE BEDPAN ON THE FLOOR.PT KEEPS CALLING FOR HER MOM AND DAD.REALITY ORIENTATION GIVEN FREQUENTLY BUT INEFFECTIVE,STAYED AT BEDSIDE TO CLOSELY MONITOR PT'S SAFETY.DR PARHAM ORDERED A 1:1 SITTER FOR THE PT. PT KEEPS REMOVING HER O2 CANNULA INSPITE OF EXPLAINING THE RISKS AND BENEFITS OF HAVING HER O2 AT 2L/MIN VIA NC ON.WILL CONTINUE TO MONITOR.
--- NOTE | 2020-07-20 20:00 | NUR ---
RN NOTES RECEIVED PT. AWAKE ON BED ,A/OX1, SITTER AT BEDSIDE, TELE MONITOR ON STANDBY, PT IS REFUSING THE MONITOR, NO IV ACCES-MD IS AWARE, PT'S BEEM PULLING OUT THE IV ACCESS, NOT IN DISTRESS, NO PAIN NOTES, SIDERAILSUPX2, CONTINUE TO MONITOR
[2020-07-21] MEDS: IPRATROPIUM NEB FS 0.5 MG/2.5 ML AMPUL.NEB NEB SCH ×6 (02:29→23:43)
[2020-07-21] MEDS: ALBUTEROL HALF STRENGTH 1.25 MG/3 ML VIAL.NEB NEB SCH ×6 (02:29→23:43)
[2020-07-21 06:24] LABS: BASOPHILS # (AUTO) 0.1 /CMM (0.0-0.2); BASOPHILS % (AUTO) 1.1 % (0.0-2.0); EOSINOPHILS % (AUTO) 1.8 % (0.0-6.0); HEMATOCRIT 36 % (33-45); HEMOGLOBIN 11.5 g/dL (11.5-14.8); LYMPHOCYTES # (AUTO) 1.8 /CMM (0.8-4.8); LYMPHOCYTES % (AUTO) 33.3 % (20.0-44.0); MEAN CORPUSCULAR HGB CONC 32 g/dl (31.0-36.0); MEAN CORPUSCULAR VOLUME 93 fL (82-100); MONOCYTES # (AUTO) 0.6 /CMM (0.1-1.30); MONOCYTES % (AUTO) 10.4 % (2.0-12.0); NEUTROPHILS % (AUTO) 53.4 % (43.0-81.0); PLATELET COUNT (AUTO) 222 /CMM (150-450); RED BLOOD CELL COUNT(AUTO) 3.86 MIL/uL (4.0-5.2); WHITE BLOOD COUNT (AUTO) 5.5 K/uL (4.3-11.0)
--- NOTE | 2020-07-21 06:38 | NUR ---
RN NOTES AWAKE, MORNING CARE RENDERED, NOT IN DISTRESS, NO PAIN NOTED, SITTER AT BEDSIDE, SIDERAILSUPX2, PT. NEEDS ATTENDED
[2020-07-21 07:01] LABS: CREATININE 1.3 mg/dL (0.6-1.3); POTASSIUM 4.1 mmol/L (3.5-5.1)
[2020-07-21 08:00] VITALS: BP 132/55
--- NOTE | 2020-07-21 08:00 | NUR ---
MEDIA COORDINATORCOUNT ROOM CLERK FROM ICU NOTES RECEIVED PT COMFORTABLY LYING IN BED .ALERT, AWAKE, CONFUSED. REALITY ORIENTATION GIVEN. ON NASAL CANULA AT 2LITERS TOLERATING WELL, NO ACUTE DISTRESS NOTED. TELE ON STANDBY BECAUSE THE PT PULLS OUT SEVERAL TIMES INSPITE OF EXPLAINING THE RISKS AND BENEFITS. WITH 1:1 SITTER AT THE BEDSIDE. AM CARE DONE. ATE 25% BREAKFAST. PIV PATENT AND INTACT, NO S/S OF INFECTION OR INFILTRATION NOTED. NO DISTRESS NOTED. MODERATE ASSISTANCE NEEDED. BED IN LOW POSITION, SIDE RAILS UP, CALL LIGHT WITHIN REACH, WILL CONTINUE TO MONITOR.
[2020-07-21] MEDS: HEPARIN SODIUM, PORCINE 5000 UNITS/1 ML VIAL SQ SCH ×2 (08:43→21:27)
[2020-07-21] MEDS: CLOTRIMAZOLE 1% 15 GM TUBE TP SCH ×2 (10:17→17:35)
[2020-07-21 16:00] VITALS: BP 124/74
--- NOTE | 2020-07-21 17:49 | NUR ---
PT CONTINUES TO REFUSE MEALS, SNACKS AND FLUIDS SAYING SHE IS NOT HUNGRY. PT IS CALM IN BED.GETS IRRITATED EASILY. GETS ANXIOUS,CUSSES AND GETS ANGRY WHEN ENCOURAGED TO EAT MEALS OR DRINK FLUIDS EXPLAINING THE RISKS AND BENEFITS. REFUSED ALTERNATIVE SNACKS OR MEALS ACCORDING TO PT'S FOOD PREFERENCE BUT STILL REFUSES. WITH 1:1 SITTER AT THE BEDSIDE.
--- NOTE | 2020-07-21 17:56 | NUR ---
ATE 25% OF EACH MEAL AND REFUSED SNACKS AND EXTRA FLUIDS/JUICES.
[2020-07-21 18:29] VITALS: BP 124/74
[2020-07-21 20:00] VITALS: BP 149/79
--- NOTE | 2020-07-22 | NUR ---
GUM ROLLING MACHINE TENDER NOTES PT REFUSING TO HAVE VS TAKEN. EXPLAINED TO PT IMPORTANCE OF VS IN HER POC BUT PT STILL REFUSED. WILL CONTINUE TO MONITOR.
[2020-07-22] MEDS: IPRATROPIUM NEB FS 0.5 MG/2.5 ML AMPUL.NEB NEB SCH ×4 (03:25→15:26)
[2020-07-22] MEDS: ALBUTEROL HALF STRENGTH 1.25 MG/3 ML VIAL.NEB NEB SCH ×4 (03:25→15:26)
--- NOTE | 2020-07-22 06:39 | NUR ---
FISHER POT NOTES AWAKE & RESPONSIVE. NOT IN ANY DISTRESS. NO SOB NOTED. DENIES ANY PAIN OR DISCOMFORT AT THIS TIME. PT STILL REFUSING TELE MONITOR ON. AM CARE DONE. MONITORED ACCORDINGLY WITH SITTER AT BEDSIDE. CALL LIGHT WITHIN REACH. BED IN LOWEST POSITION. SR UP X 3 WITH BED ALARM ON FOR SAFETY. WILL ENDORSE TO NEXT SHIFT.
[2020-07-22 06:44] LABS: BASOPHILS % (AUTO) 0.7 % (0.0-2.0); EOSINOPHILS % (AUTO) 1.3 % (0.0-6.0); HEMATOCRIT 37 % (33-45); HEMOGLOBIN 11.9 g/dL (11.5-14.8); LYMPHOCYTES # (AUTO) 1.8 /CMM (0.8-4.8); LYMPHOCYTES % (AUTO) 26.9 % (20.0-44.0); MEAN CORPUSCULAR HGB CONC 32 g/dl (31.0-36.0); MEAN CORPUSCULAR VOLUME 93 fL (82-100); MONOCYTES # (AUTO) 0.6 /CMM (0.1-1.30); NEUTROPHILS # (AUTO) 4.1 /CMM (1.8-8.9); NEUTROPHILS % (AUTO) 62.1 % (43.0-81.0); PLATELET COUNT (AUTO) 231 /CMM (150-450); RED BLOOD CELL COUNT(AUTO) 3.99 MIL/uL (4.0-5.2); WHITE BLOOD COUNT (AUTO) 6.6 K/uL (4.3-11.0)
[2020-07-22 07:07] LABS: CALCIUM, SERUM 9.1 mg/dL (8.5-10.1); CREATININE 1.1 mg/dL (0.6-1.3); POTASSIUM 4.2 mmol/L (3.5-5.1)
--- NOTE | 2020-07-22 07:30 | NUR ---
NOTIFIED DR RUIZ AND DR PARHAM THAT THE PT HAS BEEN REFUSING TELE MONITOR FOR 3 DAYS WITH ORDER TO DC TELE.
[2020-07-22 08:00] VITALS: BP 132/75
--- NOTE | 2020-07-22 08:00 | NUR ---
SPEECH LANGUAGE PATHOLOGY ASSISTANT NOTES PT ALERT, AWAKE & RESPONSIVE. ANXIOUS TO TALK TO HER DAUGHTER,ROSHAN. CALLED ROSHAN AND SPOKE TO THE PT. NO SOB NOTED. DENIES ANY PAIN OR DISCOMFORT AT THIS TIME. PT STILL REFUSING TELE MONITOR ON. AM CARE DONE. MONITORED ACCORDINGLY WITH SITTER AT BEDSIDE. PT REFUSED TO EAT BREAKFAST, INSPITE OF EXPLAINING THE RISKS AND BENEFITS. OFFERED SNACK. PT STATED THAT HER THROAT HURTS. NOTIFIED DR PARHAM AND MADE AWARE. OFFERED HOT TEA TO SOOTHE PT'S THROAT WHICH SHE AGREED TO DRINK. WILL MONITOR. CALL LIGHT WITHIN REACH. BED IN LOWEST POSITION. SR UP X 3 WITH BED ALARM ON FOR SAFETY.
[2020-07-22] MEDS: HALOPERIDOL 1 MG TABLET PO PRN ×2 (08:55→16:27)
[2020-07-22] MEDS: HEPARIN SODIUM, PORCINE 5000 UNITS/1 ML VIAL SQ SCH (08:55)
[2020-07-22] MEDS: CLOTRIMAZOLE 1% 15 GM TUBE TP SCH ×2 (08:56→17:25)
--- NOTE | 2020-07-22 15:30 | NUR ---
CHECKED PT'S BELONGINGS AND THE PAIR OF SHOES WAS MISSING.CHECKED ON GPS AND ICU BUT TO NO AVAIL.CALLED PT'S DAUGHTER,ROSHAN AND MADE AWARE. ROSHAN VERBALIZED, "ITS OK".THE REST OF PT'S BELONGINGS WERE GIVEN TO THE PT INCLUDING $29 AND HER BLACK CELL PHONE AND CORPORATE LEGAL ASSISTANT.REPORT CALLED IN TO [facility] AND SPOKE TO MARSHAL VIERA MARKER MACHINE. PT HAS NO IV LINE AND TELE MONITOR WAS DC'D. AWAITING FOR PT'S RED CROSS EXECUTIVE DIRECTOR AT 6 PM. ALSO,PT'S LATEST COVID TEST TODAY WAS NEGATIVE.
[2020-07-22 16:00] VITALS: BP 132/75
[2020-07-22] MEDS: HYDROCODONE/APAP 5/325MG TABLET PO PRN (16:28)
--- NOTE | 2020-07-22 17:02 | NUR ---
PT REFUSED TO HAVE HER UNDER BREAST REDNESS PHOTO TO BE TAKEN INSPITE OF EXPLAINING ITS RISKS AND BENEFITS.
--- NOTE | 2020-07-22 17:53 | NUR ---
PT CONTINUES TO REFUSE MEALS, SNACKS AND FLUIDS SAYING SHE IS NOT HUNGRY. PT IS CALM IN BED.GETS IRRITATED EASILY. GETS ANXIOUS,CUSSES AND GETS ANGRY WHEN ENCOURAGED TO EAT MEALS OR DRINK FLUIDS EXPLAINING THE RISKS AND BENEFITS. WITH VERY POOR ORAL INTAKE. REFUSED ALTERNATIVE SNACKS OR MEALS ACCORDING TO PT'S FOOD PREFERENCE BUT STILL REFUSES. WITH 1:1 SITTER AT THE BEDSIDE.
--- NOTE | 2020-07-22 18:35 | NUR ---
DISCHARGED PT TO [facility] VIA AMBULANCE WITH STABLE V/S.DENIES ANY PAIN OR DISTRESS.
== END 2020-07-22 18:35 | DRG 917 ==
LOC: ICU 14:17 → TELE 07-20 12:13
PROVIDERS: ADMIT Nurse Practitioner Acute Care; ATTEND Internal Medicine
DX: T43.501A Poisoning by unspecified antipsychotics and neuroleptics, accidental (unintentional), initial encounter (principal); J96.22 Acute and chronic respiratory failure with hypercapnia; G92 Toxic encephalopathy; N17.0 Acute kidney failure with tubular necrosis; N39.0 Urinary tract infection, site not specified; E44.1 Mild protein-calorie malnutrition; E66.2 Morbid (severe) obesity with alveolar hypoventilation; E87.0 Hyperosmolality and hypernatremia; F31.64 Bipolar disorder, current episode mixed, severe, with psychotic features; I10 Essential (primary) hypertension; Z73.6 Limitation of activities due to disability; E78.5 Hyperlipidemia, unspecified; E11.9 Type 2 diabetes mellitus without complications; F29 Unspecified psychosis not due to a substance or known physiological condition; Z87.440 Personal history of urinary (tract) infections; B96.89 Other specified bacterial agents as the cause of diseases classified elsewhere; Z68.27 Body mass index [BMI] 27.0-27.9, adult; Y92.89 Other specified places as the place of occurrence of the external cause
CPT/HCPCS: 31720; 36415; 36600; 71045-TC; 80048-TC; 80061-TC; 82803-TC; 83735-TC; 84100-TC; 85025-TC; 87081-TC; 94799-TC; G0378; J1644; J7030